=== PATIENT | female | born 1955 | race Caucasian/White ===

== ENCOUNTER 2017-12-24 06:33 | Day surgery (SDC) | payer OTHER, SELFPAY ==
[2017-12-15 12:10] VITALS: BMI 26.2
--- NOTE | 2017-12-24 | PATH_ITS ---
[facility] Accession Number: [id number] . 01 Material submitted: . SUBMUCOSAL FIBROID . 02 Diagnosis: Submucosal Fibroid, Procedure Not Specified: Portions of endometrium with cystic atrophy; negative for glandular hyperplasia, cytologic atypia, and malignancy. Attached fragments of hyalinized and partially calcified myometrium, consistent with submucosal leiomyoma, in the appropriate clinical setting. Negative for atypia or malignancy. [facility]/12/27/2017 . 02 Electronically signed: . Allie Henderson MD, Pathologist NPI- [id number] . 01 Gross description: . Received in formalin, labeled submucosal fibroid, are multiple fragments of stafford-hdz tissue (1 gram, 2.5 x 0.8 x 0.4 cm in aggregate). Entirely submitted in cassette A1. ([id number]) /[facility] . 02 Pathologist provided ICD-10: D25.9 . 02 CPT . 534240 Performed at: 01 [facility] [address], [place], [place] [id number] MD Herson Harrington MD Phone: [phone] Performed at: 02 [facility] [address] [place], [place] [id number] MD George Donis MD Phone: [phone]
[2017-12-24 07:02] VITALS: BMI 26.2
[2017-12-24 07:10] VITALS: BP 92/56; PULSE 59; RESP 15; TEMP 36.2; O2SAT 97
[2017-12-24] MEDS: LACTATED RINGERS 1,000 ML 42 ML IV ×2 (07:39→08:59)
--- NOTE | 2017-12-24 08:36 | SUR.OPER ---
Lithotomy on padded OR bed, head on pillow, arms secured on padded arm boards at <90 degrees abduction. Legs secured in padded yellow fins stirrups.
[2017-12-24 08:51] VITALS: BP 111/47; PULSE 81; RESP 13; TEMP 36.2; O2SAT 98
[2017-12-24 08:56] VITALS: BP 92/38; PULSE 70; RESP 10; O2SAT 96
[2017-12-24 09:01] VITALS: BP 104/46; PULSE 80; RESP 10; O2SAT 98
[2017-12-24 09:06] VITALS: BP 100/57; PULSE 78; RESP 10; O2SAT 98
--- NOTE | 2017-12-24 09:10 | PM.PREOP ---
Pre-operative Note Interval Note Pre-op Check: Yes History & Physical exam performed today by Physician Changes: No
[2017-12-24 09:20] VITALS: BP 106/56; PULSE 58; RESP 16; TEMP 36; O2SAT 100
--- NOTE | 2018-01-14 12:10 | PM.GYNOP.1 ---
Operative Date/Time/Diagnoses Date of procedure: 12/24/17 Time of procedure: 12:30 Pre-op diagnosis: Menorrhagia Submucosal fibroid Post-op diagnosis: same Procedure: Procedures Operation Date: 12/24/17 07:45 Actual Procedures Side Surgeon p Hysteroscopy D&C and resection Ramya Mcduffie MD Indications: Menorrhagia Submucosal fibroid Surgeon: Ramya Mcduffie Anesthesia Type: General Operative Notes Closure Type: not applicable Specimen(s): other (Pieces of submucosal fibroid) Applied: catheter Estimated blood loss (mL): 10 Blood products transfused: none Procedure in detail: After informed consent was obtained, the patient was taken to the operating room where she was placed in the dorsal supine position. After adequate LMA general anesthesia was achieved, she was placed in the dorsal lithotomy position, and prepped and draped in the usual sterile fashion. A time-out was performed. A bivalve speculum was placed into the vagina and the anterior lip of the cervix grasped with a single-tooth tenaculum. Cervical os was sequentially dilated to the # 8 Hegar dilator. The hysteroscope passed easily into the endometrial cavity. Both fallopian tube ostia were observed. There was a left cornual/fundal submucosal fibroid. This was resected in 6 pieces with the resectoscope with settings at 80 cut and 40 cautery. Hemostasis was achieved. The instruments were removed from the uterus. The single-tooth tenaculum was removed from the anterior lip of the cervix. The bivalve speculum was removed from the vagina. Sponge, lap, and instrument counts were correct x2. Patient tolerated the procedure well, and was taken to PACU in stable condition. Complications: none Post-operative Condition: stable Disposition: PACU Plan for aftercare: Home after recovery
== END 2017-12-24 09:37 | disposition home or self-care (01) ==
PROVIDERS: Visit Provider Obstetrics & Gynecology
PROC: 0UDB8ZZ Extraction of Endometrium, Via Natural or Artificial Opening Endoscopic (ICD-10-PCS; CPT 58558; principal; 2017-12-24 07:45)
DX: N92.0 Excessive and frequent menstruation with regular cycle (principal); D25.0 Submucous leiomyoma of uterus; D25.9 Leiomyoma of uterus, unspecified
CPT/HCPCS: 58561; J1100; J1885; J2405; J2704; J3010

== ENCOUNTER → 2018-09-01 09:44 | Outpatient (CLI) | payer OTHER, SELFPAY ==
[2018-09-01 10:20] LABS: Add Manual Diff / Slide Review NO; Basophils Absolute Auto 0 /uL (0-100); Basophils Percent Auto 0.6 % (0-2); Eosinophils Absolute Auto 300 /uL (0-450); Eosinophils Percent Auto 5.8 % (2-4); Hematocrit 40.9 % (36-46); Hemoglobin 13.8 g/dL (12.0-16.0); Lymphocytes Absolute Auto 1700 /uL (1100-4500); Lymphocytes Percent Auto 32.6 % (25-40); Mean Corpuscular HGB Conc 33.9 % (30-36); Mean Corpuscular Hemoglobin 32.5 PG (26-34); Monocytes Absolute Auto 600 /uL (0-900); Monocytes Percent Auto 10.5 % (3-14); Neutrophils Absolute Auto 2700 /uL (1500-7000); Neutrophils Percent Auto 50.5 % (50-75); Platelet Count 276 X10^3/uL (150-400); Red Blood Cell Count 4.25 X10^6/uL (4.0-5.2); White Blood Cell Count 5.3 X10^3/uL (4.5-11.0)
[2018-09-01 10:46] LABS: Alanine Aminotransferase 24 IU/L (9-52); Albumin 4.5 g/dL (3.5-5.0); Albumin Globulin Ratio 1.5 (1.0-2.8); Alkaline Phosphatase 70 U/L (38-126); Aspartate Aminotransferase 26 IU/L (14-36); BUN Creatinine Ratio 21.1 (6-22); Bilirubin Total 0.7 mg/dL (0.2-1.3); Blood Urea Nitrogen 19 mg/dL (7-17); Calcium 9.4 mg/dL (8.4-10.2); Carbon Dioxide 29 mmol/L (22-32); Chloride 103 mmol/L (98-107); Estimated Glomerular Filt Rate > 60.0 mL/min (>60); Glucose 76 mg/dL (80-110); HEMOLYSIS < 15 (0-50); Potassium 3.7 mmol/L (3.4-5.1); Sodium 141 mmol/L (137-145); Total Protein 7.5 g/dL (6.3-8.2)
[2018-09-01 11:19] LABS: TSH w/ Reflex to FT4 1.49 uIU/mL (0.47-4.68)
== END ==
PROVIDERS: PCP Internal Medicine; Visit Provider Internal Medicine
DX: R53.83 Other fatigue (principal)
CPT/HCPCS: 36415; 80053; 84443; 85025

== ENCOUNTER 2018-10-03 06:24 | Day surgery (SDC) | payer OTHER, SELFPAY ==
[2018-09-19 15:22] VITALS: BMI 26.6
[2018-10-03] VITALS (12 sets, daily range): BP systolic 98–118; BP diastolic 42–63; PULSE 54–78; RESP 9–17; TEMP 36–36.8; O2SAT 96–100; BMI 26.6
--- NOTE | 2018-10-03 | PATH_ITS ---
[facility] Accession Number: [id number] . 01 Material submitted: . TUBE/OVARY - TUBES AND OVARIES . 02 Diagnosis: Fallopian Tubes and Ovaries, Hysterectomy and Bilateral Salpingo- oophorectomy / Procedure Not Specified (Weight 34 grams): Portions of myometrium with involvement by adenomyosis and with multiple intramural leiomyomas (0.2-1.5 cm in greatest dimension). Uterine serosa with nonspecific adhesions and no significant histomorphologic abnormality. Attached ovary with benign subcortical inclusion cysts and no significant histomorphologic abnormality. Attached fallopian tube with no significant histomorphologic abnormality. Detached ovary with cortical, benign inclusion cysts and no significant histomorphologic abnormality. Detached fallopian tube with benign paratubal cysts (1-3 mm in greatest dimension) and no significant histomorphologic abnormality. [facility]/10/06/2018 . 02 Electronically signed: . Allie Henderson MD, Pathologist NPI- [id number] . 01 Gross description: . Received in formalin, labeled tubes / ovaries, is a piece of upper uterine body (34 grams, 5.5 x 5.5 x 4.1 cm) with an attached ovary (2.0 x 1.2 x 0.6 cm) and attached fimbriated fallopian tube (length-4.3 cm, diameter-0.4 cm). A detached ovary (1.5 x 0.7 x 0.5 cm) with an attached fimbriated fallopian tube (length-3.5 cm, diameter-0.4 cm) is also submitted. The uterine parenchyma is hdz-white and contains multiple solid firm white whorled well-circumscribed nodules (0.2 x 0.2 x 0.1 cm-1.5 x 1.5 x 1.2 cm). The serosa is hdz smooth and shiny. The ovaries have hdz-yellow smooth flat shiny serosa and hdz-yellow solid firm parenchyma with corpus albicans identified. The fallopian tubes have hdz smooth shiny serosa and hdz unremarkable lesions. Section code: (A1-A3) uterine parenchyma, assistance representative; (A4) attached ovary, assistance representative serial sections; (A5) detached ovary, assistance representative serial sections; (A6) attached fallopian tube, assistance representative serial sections; (A7) attached fimbria, bivalved, entirely submitted; (A8) detached fallopian tube, assistance representative serial sections; (A9) detached fimbria, bivalved, entirely submitted. ([id number]) /MRV . 02 Pathologist provided ICD-10: D25.9 . 02 CPT . 213614 Performed at: 01 [facility] [address] [id number] MD Herson Harrington MD Phone: [phone] Performed at: 02 [facility] [address] [place] [id number] MD Nusrat Garcia MD Phone: [phone]
--- NOTE | 2018-10-03 07:26 | PM.PREOP ---
Pre-operative Note Interval Note History & Physical reviewed/Exam performed by Physician: Yes Changes to H&P: No
[2018-10-03] MEDS: LACTATED RINGERS 1,000 ML 100 ML IV (07:28)
[2018-10-03] MEDS: CEFAZOLIN 2 GM/100 ML FROZ.PIGGY IV (07:55)
--- NOTE | 2018-10-03 08:42 | SUR.OPER ---
Lithotomy on padded OR bed. [place]angburn Pad Positioner under torso. Head on pillow, arms padded and tucked at sides. Legs secured in padded yellow fins stirrups.
[2018-10-03] MEDS: BUPIVACAINE 0.5% W/ EPI (PF) VIAL 30 ML INJ (08:55)
[2018-10-03] MEDS: LACTATED RINGERS 1,000 ML 42 ML IV (09:24)
--- NOTE | 2018-10-03 09:35 | PM.GYNOP.1 ---
Operative Date/Time/Diagnoses Date of procedure: 10/03/18 Time of procedure: 09:39 Pre-op diagnosis: Fibroid uterus Breast cancer, ER positive, unable to tolerate tamoxifen and Anastole Endometrial hyperplasia Post-op diagnosis: same Procedure: Procedures Operation Date: 10/03/18 07:45 Actual Procedures Side Surgeon p SARA tse/Nitza S&O Ramya Mcduffie MD Indications: Fibroid uterus Endometrial hyperplasia Breast cancer ER positive Unable to tolerate Tamoxifen and Anastasole Surgeon: Ramya Mcduffie Production Proofreader: Iglesia Dhillon Anesthesia Type: General and Local Operative Notes Findings: Five week size multi fibroid uterus Normal tubes and ovaries Normal liver and gallbladder Closure Type: primary Specimen(s): left tube & ovary, right tube & ovary and uterus Applied: catheter (Removed at the end of the case) Estimated blood loss (mL): 10 Blood products transfused: none Procedure in detail: The patient was taken to the operating room where she was placed in the dorsal supine position. After adequate general endotracheal anesthesia was achieved, she was placed in the dorsal lithotomy position, and prepped and draped in the usual sterile fashion. A timeout was performed. A bivalve speculum was placed into the vagina and the anterior lip of the cervix grasped with a single-tooth tenaculum. The cervical os was sequentially dilated until the ZUMI uterine manipulator could pass easily into the endometrial cavity. The single-tooth tenaculum was removed from the anterior lip of the cervix, and the bivalve speculum was removed from the vagina. Attention was then turned to the abdomen where 6 mL of half percent Marcaine with epinephrine were injected in the umbilical fold. A 5 mm incision was made. The veress needle was placed into the peritoneal cavity, and its placement confirmed by aspiration and drop test. The veress needle was removed. A 5 mm trocar was placed without difficulty. 2 other incisions were made midway between the pubic symphysis and umbilicus after 5 mL of half percent Marcaine with epinephrine were injected. These were 5 mm incisions. Two, 5 mm trochars were placed under direct visualization. The right tube and ovary were grasped with an atraumatic grasper. Using the plasma kinetic with settings of 40 W the infundibulopelvic ligament was cauterized and cut. The round ligament and broad ligament were cauterized and cut. The cornua of the uterus was then grasped with an atraumatic grasper. Hemostasis was achieved. The bladder flap was created using the plasma kinetic with cautery and cut alf across. The uterine arteries on the right side were extensively cauterized with plasma kinetic. All of this was repeated on the left side. The remainder of the bladder flap was created using the plasma kinetic, and the bladder taken down off the lower uterine segment and cervix. Using the L[place]oop, the cervix was amputated from the uterus 2 cm above the uterosacral ligaments, after the ZUMI uterine manipulator was removed from the uterus and a moistened sponge stick was placed in the vagina. There was a small amount of bleeding noted from the posterior edge of the cervix, and this was cauterized for hemostasis. 6 mL of half percent Marcaine with epinephrine were injected above the pubic symphysis. A 12mm incision was made. A 12 mm trocar was placed under direct visualization. The trochar was removed. An Endobag was placed through the suprapubic incision and the uterus, tubes, and ovaries were placed into the Endobag. The uterus was morcellated in approximately 3 pieces. The tubes and ovaries were also removed from the Endobag. The Endobag was removed from the peritoneal cavity. The pelvis was copiously irrigated with warm normal saline. No bleeding was noted. 20 mL of 0.2% ropivacaine were placed over the pelvic pedicles. The instruments were removed from the abdomen. The CO2 was allowed to escape. The suprapubic incision was closed on the fascia with 0 Vicryl. The subcutaneous layer was closed with 2 simple interrupted sutures with 3 0 Vicryl. All of the incisions were closed with 4-0 undyed Vicryl in a subcuticular fashion. Steri strips, 2x2's and op sites were placed over the incisions. The moistened sponge stick was removed from the vagina. Sponge, lap, and instrument counts were correct x-2. The patient tolerated the procedure well, was taken to PACU in stable condition. Complications: none Post-operative Condition: stable Disposition: PACU Plan for aftercare: Home after recovery
[2018-10-03] MEDS: fentaNYL 100 MCG/2 ML INJ 50 MCG IV ×3 (09:53→10:35)
[2018-10-03] MEDS: ONDANSETRON 4 MG/2 ML INJ IV (09:58)
[2018-10-03] MEDS: KETOROLAC 30 MG/ML VIAL IV (10:09)
--- NOTE | 2018-10-03 10:11 | SUR.PHASEI ---
States nausea has resolved, It hurts more than I thought it would Meds given and position of bed changed for comfort. Resp unlabored, skin warm and dry.
--- NOTE | 2018-10-03 10:39 | SUR.PHASEI ---
HOB elevated after IV pain Rx. Ice chips and saltines given in prep for PO rx.
[2018-10-03] MEDS: OXYCODONE/ACETAMINOPHEN 5/325 TABLET 1 TAB PO (10:50)
--- NOTE | 2018-10-03 11:06 | SUR.PHASEI ---
1103 To OPD, report given, patient calm, relaxed, smiling, tolerating PO well; denies nausea, pain well controlled. No drainage at sites/bill-pad. Stable.
--- NOTE | 2018-10-03 11:34 | SUR.PHASEII ---
brought in, d/c instructions discussed. Both voiced an understanding. Pt drinking tea, at bedside. SCD's on pt. Dr Mcduffie's office called to verify d/c protocol. Abdomen with 4 gauze and tegaderm dressings that are c/d/i/and bill pad has no drainage present.
--- NOTE | 2018-10-03 11:43 | SUR.PHASEII ---
Call light provided
== END 2018-10-03 12:26 | disposition home or self-care (01) ==
PROVIDERS: PCP Internal Medicine; Visit Provider Obstetrics & Gynecology
PROC: 0UT94ZL Resection of Uterus, Supracervical, Percutaneous Endoscopic Approach (ICD-10-PCS; CPT 58542; principal; 2018-10-03 07:45)
DX: D25.9 Leiomyoma of uterus, unspecified (principal); Z85.3 Personal history of malignant neoplasm of breast; N85.00 Endometrial hyperplasia, unspecified; Z17.0 Estrogen receptor positive status [ER+]
CPT/HCPCS: 58542; J0330; J0690; J1100; J1885; J2405; J2704; J3010

== ENCOUNTER → 2023-12-07 12:47 | Outpatient (ROUT) | payer MEDICARE, OTHER, SELFPAY ==
[2023-12-07 13:30] LABS: COVID-19 CEPHEID 4-PLEX PCR Negative (Negative); Influenza A - CEPHEID Flu A NEGATIVE (NEGATIVE); Influenza B - CEPHEID Flu B NEGATIVE (NEGATIVE); Respiratory Syncytial Virus Negative (Negative)
== END ==
PROVIDERS: PCP Family Medicine; Visit Provider Internal Medicine
DX: R53.83 Other fatigue (principal); R51.9 Headache, unspecified; R63.0 Anorexia
CPT/HCPCS: 0241U

== ENCOUNTER → 2023-12-31 16:56 | Outpatient (CLI) | payer MEDICARE, OTHER, SELFPAY ==
--- NOTE | 2023-12-31 16:57 | DI.MRI.S_ITS ---
PROCEDURE: MR HEAD/BRAIN WO CON INDICATIONS: ACUTE NONINTRACTABLE HEADACE,VIS DISTURBANCES TECHNIQUE: Non-contrast axial T1 spin echo, axial T2 fast spin echo, sagittal and axial FLAIR, coronal T2 fast spin echo, axial gradient echo, axial diffusion and ADC through the brain. COMPARISON: Outside Film, MR, MR BRAIN WITHOUT CONTRAST, 05/23/2021, 10:31. FINDINGS: Image quality: Excellent. CSF spaces: Ventricles appear symmetric in size and shape. Basal cisterns are patent. No extra-axial fluid collections. Brain: No intracranial bleeds or mass effects. There is cerebral volume loss for age. There are periventricular and deep white matter chronic small vessel ischemic changes. Brainstem appears normal. Diffusion-weighted images show no acute infarct. No chronic ischemic insults. Normal intravascular flow voids are present. Compared to prior exam in 2021 which included NeuroQuant data, subjective comparison to non NeuroQuant images of today's exam demonstrate similar appearance of medial temporal atrophy. Skull and face: Calvarial bone marrow is normal in signal. Orbits are normal. Sinuses: Sinuses and mastoids are clear. IMPRESSION: 1. No acute intracranial process. 2. Moderate atrophy and chronic microvascular ischemic changes. Dictated by: Kyesha Fragoso M.D. on 01/03/2024 at 13:31 Approved by: Keysha Fragoso M.D. on 01/03/2024 at 13:37
== END ==
LOC: MRI 16:56
PROVIDERS: PCP Family Medicine; Referring Provider Family Medicine; Visit Provider Family Medicine
DX: R51.9 Headache, unspecified (principal); H53.8 Other visual disturbances
CPT/HCPCS: 70551

== ENCOUNTER 2024-07-05 10:21 | Day surgery (SDC) | payer MEDICARE, OTHER, SELFPAY ==
--- NOTE | 2024-07-05 | PATH_ITS ---
[facility] Accession Number: [id number] No. of containers..04 Tissue . 01 Material submitted: . PART A: small bowel - SMALL BOWEL PART B: gastrointestinal site - STOMACH PART C: esophagus - ESOPHAGUS PART D: colon - RANDOM COLON . 01 Clinical history: . A: R/O CELIAC . 01 Diagnosis: Part A: SMALL BOWEL: Small bowel mucosa with no diagnostic alterations. No active inflammation and no evidence of celiac disease. . Part B: STOMACH: Gastric mucosa with minimal chronic inflammation. No Helicobacter organisms identified on H/E stain. No intestinal metaplasia, dysplasia, or malignancy identified. . Part C: ESOPHAGUS: Squamocolumnar junctional mucosa with changes consistent with reflux. No goblet cell metaplasia or dysplasia identified. . Part D: RANDOM COLON: Colonic mucosa with no diagnostic alterations. No active inflammation, granulomas, dysplasia, or malignancy identified. No evidence of colitis. [facility] 07/10/2024 1617 Local . 01 Electronically signed: . Herson Harrington MD, Pathologist NPI- [id number] . 01 Gross description: . Part A: SMALL BOWEL: Received in formalin are 2 fragment(s) of hdz, soft tissue measuring 0.2 x 0.2 x 0.2 cm to 0.3 x 0.3 x 0.3 cm submitted entirely in 1 cassette(s) . Part B: STOMACH: Received in formalin are 2 fragment(s) of hdz, soft tissue measuring 0.1 x 0.1 x 0.1 cm to 0.5 x 0.2 x 0.2 cm submitted entirely in 1 cassette(s) . Part C: ESOPHAGUS: Received in formalin is 1 fragment(s) of hdz, soft tissue measuring 0.2 x 0.2 x 0.2 cm submitted entirely in 1 cassette(s) . Part D: RANDOM COLON: Received in formalin are 4 fragment(s) of hdz, soft tissue measuring 0.1 x 0.1 x 0.1 cm to 0.2 x 0.2 x 0.2 cm submitted entirely in 1 cassette(s) /[facility] 07/10/2024 1617 Local . 01 Microscopic: . Part C: ESOPHAGUS: An ABPAS stain was performed to evaluate for goblet cell metaplasia and is negative. The control stains appropriately. . 01 Pathologist provided ICD-10: K21.00, K29.30 . 01 CPT . 517176, 045068, 591249, 250214, 485137 Specimen Comment: A courtesy copy of this report has been sent to [phone] Performed at: 01 [facility] [address], [place], [place] [id number] MD Herson Harrington MD Phone: [phone]
[2024-07-05 10:56] VITALS: BP 86/49; PULSE 60; RESP 16; TEMP 36.5; O2SAT 96
[2024-07-05] MEDS: LACTATED RINGERS 1,000 ML 150 ML IV (11:06)
--- NOTE | 2024-07-05 11:11 | PM.PREOP ---
Pre-operative Note Interval Note History & Physical reviewed/Exam performed by Physician: Yes Changes to H&P: No ASA Class (for procedural sedation): III
--- NOTE | 2024-07-05 11:12 | PM.OP.EC ---
Operative Date/Time/Diagnoses Date of procedure: 07/05/24 Pre-op diagnosis: See indication and findings Procedure & Clinicians Study performed: EGD and colonoscopy Indications: Weight loss Surgeon: Sanchez Beasley Procedure Notes Procedure in detail: After informed consent was obtained the patient was placed in left lateral decubitus position. The video upper scope was placed into the oropharynx and with the patient's help swallowed into the esophagus. The esophagus stomach and duodenum were carefully examined. On withdrawal, retroflexed view the GE junction was performed. The scope was removed. The patient tolerated the procedure well. The patient was then turned in the colonoscope substituted. This placed the rectum slowly advanced cecum. Preparation was good. On slow withdrawal mucosa was carefully examined. The scope was removed. The patient tolerated the procedure well. Blood loss none Complications none Sedation mac EGD Findings 1. 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 Biopsies taken 2. Patchy erythema biopsies taken to rule out Helicobacter 3. Normal duodenal bulb and sweep biopsies taken to rule out celiac Colonoscopy 1. Normal colonoscopy to cecum biopsies taken to rule out microscopic colitis Will be in touch regarding biopsies. She is otherwise to follow up with Dr. Flores to potentially schedule the abdominal pelvic CT scan mentioned in the initial evaluation
[2024-07-05 12:05] VITALS: BP 106/59; PULSE 54; RESP 14; TEMP 36.6; O2SAT 94
[2024-07-05 12:11] VITALS: BP 98/51; PULSE 55; RESP 18; TEMP 36.4; O2SAT 98
[2024-07-05 12:16] VITALS: BP 98/52; PULSE 53; RESP 14; TEMP 36.4; O2SAT 98
[2024-07-05 12:30] VITALS: BP 105/55; PULSE 55; RESP 18; TEMP 36.3; O2SAT 99
== END 2024-07-05 12:55 | disposition home or self-care (01) ==
PROVIDERS: PCP Family Medicine; Referring Provider Internal Medicine Gastroenterology; Visit Provider Internal Medicine Gastroenterology
PROC: 0DJ08ZZ Inspection of Upper Intestinal Tract, Via Natural or Artificial Opening Endoscopic (ICD-10-PCS; CPT 45380; principal; 2024-07-05 12:30)
PROC: 0DJD8ZZ Inspection of Lower Intestinal Tract, Via Natural or Artificial Opening Endoscopic (ICD-10-PCS; CPT 45378; 2024-07-05 12:30)
DX: R63.4 Abnormal weight loss (principal); K29.50 Unspecified chronic gastritis without bleeding
CPT/HCPCS: 45380; 43239; J2704

== ENCOUNTER → 2024-07-11 14:47 | Outpatient (CLI) | payer MEDICARE, OTHER, SELFPAY ==
--- NOTE | 2024-07-11 14:51 | DI.RAD.S_ITS ---
PROCEDURE: XR DEXA AXIAL SKELETON INDICATIONS: POSTMENOPAUSAL COMPARISON: None. FINDINGS: Lumbar Spine: Bone mineral density 0.851 g/cm2, T score -1.5. Left Femoral Neck: Bone mineral density 0.753 g/cm2, T score -0.9 Left Hip: Bone mineral density 0.848 g/cm2, T score -0.8. Fracture Risk Calculation (when applicable): 10-year fracture risk of a major osteoporotic fracture 12 percent and of a hip fracture 1.5 percent. (T score greater or equal to -1.0 to: NORMAL) (T score from -1.1 to -2.4: OSTEOPENIA) (T score less than or equal to -2.5: OSTEOPOROSIS) IMPRESSION: Osteopenia---recommend repeat DEXA in 2-3 years for reassessment. Follow-up guidelines as follows: Osteoporosis: Consider a repeat DEXA and Vertebral Fracture Assessment (VFA) exam in 2 years or sooner if medically necessary, to reassess this patient's status. Osteopenia: Consider a repeat DEXA in 2-3 years to reassess this patient's status, or if there is a new clinical indication. Normal: Consider a repeat DEXA in 5 years or sooner, or if there is a new clinical indication. All treatment decisions require clinical judgment and consideration of individual patient factors, including patient preferences, comorbidities, previous drug use, risk factors not captured in the FRAX model (e.g., frailty, falls, vitamin D deficiency, increased bone turnover, interval significant decline in bone density ) and possible under- or over-estimation of fracture risk by FRAX. In addition, the NOF Guide recommends that FDA-approved medical therapies be considered in postmenopausal women and men age >= 50 years with a: * Hip or vertebral (clinical or morphometric) fracture * T-score of <=-2.5 at the spine or hip * Ten-year fracture probability by FRAX of >= 3% for hip fracture or >=20% for major osteoporotic fracture. Dictated by: Omar Faria M.D. on 07/11/2024 at 19:31 Approved by: Omar Faria M.D. on 07/11/2024 at 19:32
== END ==
PROVIDERS: PCP Family Medicine; Referring Provider Family Medicine; Visit Provider Family Medicine
DX: Z78.0 Asymptomatic menopausal state (principal); M85.88 Other specified disorders of bone density and structure, other site
CPT/HCPCS: 77080